=== PATIENT | female | born 1975 | race Caucasian/White ===

== ENCOUNTER 2021-05-16 19:14 | Emergency (ER) | payer OTHER ==
[~2021-05-16] VITALS: Ht 167.6 cm; Wt 63.5 kg
[2021-05-16 19:59] LABS: ABSOLUTE BASOPHILS 0.1 thou/uL (0.0-0.2); ABSOLUTE EOSINOPHILS 0.4 thou/uL (0.0-0.7); ABSOLUTE LYMPHOCYTES 3.8 thou/uL (0.8-5.3); ABSOLUTE MONOCYTES 0.4 thou/uL (0.0-1.2); ABSOLUTE NEUTROPHILS 3.1 thou/uL (1.6-8.1); HEMATOCRIT 41.8 % (37.0-47.0); HEMOGLOBIN 13.8 gm/dL (12.0-15.0); LYMPHOCYTES 48.8 %; MCHC 32.9 g/dL (28.0-37.0); MCV 97.2 fL (80.0-100.0); MONOCYTES 4.8 %; MPV 8.1 fl. (7.2-11.1); NUCLEATED RBCS 0 /100WBC; PLATELET COUNT* 280 thou/uL (150-400); POLYS 40.4 %; RDW-CV 13.8 % (10.5-14.5); WBC 7.8 thou/uL (4.0-11.0)
[2021-05-16] MEDS ORDERED: ADVAIR 250-501 EACH INH (20:20)
[2021-05-16 20:21] LABS: CALCIUM 8.1 mg/dL (8.5-10.1); POTASSIUM 3.9 mmol/L (3.5-5.1)
[2021-05-16 20:31] LABS: ALBUMIN 3.8 g/dL (3.4-5.0); MAGNESIUM 2.3 mg/dL (1.8-2.4); TOTAL BILIRUBIN 0.2 mg/dL (<0.1-1.0); TOTAL PROTEIN 7.2 g/dL (6.4-8.2)
[2021-05-16 21:01] LABS: URINE BILIRUBIN NEGATIVE (Negative); URINE BLOOD TRACE (Negative); URINE CLARITY CLEAR; URINE COLOR YELLOW; URINE GLUCOSE-RANDOM NEGATIVE (Negative); URINE KETONES NEGATIVE (Negative); URINE LEUKOCYTES-REFLEX NEGATIVE (Negative); URINE NITRITE-REFLEX NEGATIVE (Negative); URINE PROTEIN NEGATIVE (Negative); URINE SPECIFIC GRAVITY 1.015 (1.005-1.030); URINE UROBILINOGEN 0.2 E.U./dl (0.2-1.0)
[2021-05-16] MEDS ORDERED: ZOFRAN ODT4 MG PO (22:27)
[2021-05-16 22:35] VITALS: BP 105/64
--- NOTE | 2021-05-17 11:51 | EKG ---
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: ASTRID : 1975 Requested By: Josie Coffey Order Number: [id number] MD: Driss Starkey Measurements Intervals [place] Rate: 102 P: 50 AL: 136 QRS: 34 QRSD: 130 T: 32 QT: 405 QTc: 528 Interpretive Statements Sinus tachycardia Nonspecific intraventricular conduction delay Minimal ST depression, inferior leads Baseline wander in lead(s) I No previous ECG available for comparison Electronically Signed On 05-17-2021 11:51:25 [employer]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 /EPI
== END 2021-05-16 22:35 | disposition home or self-care (01) ==
LOC: M.ERS 19:14
PROVIDERS: Emergency Medicine
DX: S01.511A Laceration without foreign body of lip, initial encounter (principal); S69.81XA Other specified injuries of right wrist, hand and finger(s), initial encounter; F10.129 Alcohol abuse with intoxication, unspecified; R22.42 Localized swelling, mass and lump, left lower limb; Z88.5 Allergy status to narcotic agent; W10.8XXA Fall (on) (from) other stairs and steps, initial encounter; Y93.01 Activity, walking, marching and hiking; Y92.89 Other specified places as the place of occurrence of the external cause; Y99.9 Unspecified external cause status; Y90.9 Presence of alcohol in blood, level not specified